=== PATIENT | male | born 1990 | race Caucasian/White ===

== ENCOUNTER 2025-08-01 08:57 | Outpatient (AMB) | payer BC, SELFPAY ==
--- NOTE | 2025-08-01 09:01 | A.OFFPC_ITS ---
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 He is transferring from [facility]. Hx of htn and borderline high cholesterol. 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 Knee has since been healed. Derm: Numerous moles and has needed biopsies in the past. 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 1. Little interest or pleasure in doing things: not at all 2. Feeling down, depressed, or hopeless: not at all 3. Trouble falling or staying asleep, or sleeping too much: not at all 4. Feeling tired or having little energy: not at all 5. Poor appetite or overeating: not at all 6. Feeling bad about yourself - or that you are a failure or have let yourself or your family down: not at all 7. Trouble concentrating on things, such as reading the newspaper or watching television: not at all 8. Moving or speaking so slowly that other people could have noticed. Or the opposite - being so fidgety or restless that you have been moving around a lot more than usual: not at all 9. Thoughts that you would be better off or of hurting yourself in some way: not at all Total score: 0 Depression Screening Interpretation: Negative Depression Screening Done: Yes 25507 - PHQ-9 Billing: Yes Source: Developed by Drs. Sundar Villalpando, Leeanna Paris, Richard Feliciano and colleagues, with an educational isatu from [employer]. Thrive Questionnaire Date Thrive assessed: 07/29/25 I am a: Patient What is your living situation today?: I have a steady place to live Within the past 12 months, did the food you bought not last and you didn't have the money to get more?: Never true Within the past 12 months, did you worry whether your food would run out before you got money to buy more?: Never true Do you have trouble paying for medicines?: No Do you have trouble getting transportation to medical appointments?: No Do you have trouble paying your heating and electricity bill?: No Do you have trouble taking care of your child, family member or friend?: No Do you have trouble with day-to-day activities such as bathing, preparing meals, shopping, managing finances, etc.?: No Are you currently unemployed and looking for a job?: No Are you interested in more education?: No Please select the resources that you would like help with: None Currently or been in a relationship where the following occur: No concerns reported THRIVE Score: 0 AUDIT C Alcohol Use Questionnaire (AUDIT-C) 1. How often do you have a drink containing alcohol?: 2-4 times a month 2. How many drinks containing alcohol do you have on a typical day when you are drinking?: 1 or 2 3. How often do you have six or more drinks on one occasion?: Less than monthly Total Score: 3 CAROL-7 AMB Questionnaire CAROL-7 Date CAROL - 7 assessed: 08/01/25 Feeling nervous, anxious, or on edge: 0 = Not at all Not being able to stop or control worryin = Not at all Worrying too much about different things: 0 = Not at all Trouble relaxin = Not at all Being so restless that it is hard to sit still: 0 = Not at all Becoming easily annoyed or irritable: 0 = Not at all Feeling afraid as if something awful might happen: 0 = Not at all Total CAROL-7 score (0-4 normal; 5-9 mild; 10-14 moderate; 15-21 severe): 0 Source: Developed by Drs. Sundar Villalpando, Leeanna Paris, Richard Feliciano and colleagues, with an educational isatu from [employer]. CAROL-7 Assessment Billing CAROL-7 Assessment Tool: CAROL-7 Assessment 74368 Physical exam (Primary Care) Depression Screening Interpretation: Negative Thrive Assessment: Date of Thrive Assessment Date Thrive assessed 07/29/25 07/29/25 12:19 Currently or been in a relationship where the following occur: No concerns reported Const Orientation/consciousness: patient oriented x3 HENMT Ears: hearing grossly normal bilaterally General nose exam: No nasal polyps present Face and sinus: Yes sinuses nontender Mouth: Normal oral and palatal mucosa present Eyes Pupils: Equal, round and reactive pupils present EOM: EOMs intact bilaterally Neck Neck: Yes full ROM and Yes no lymphadenopathy Thyroid: Thyroid normal Lymphatic: no lymphadenopathy noted Chest Chest palpation & inspection: normal inspection of the chest Resp Auscultation: clear to auscultation bilaterally Cardio Rate: regular rate Rhythm: regular rhythm Heart sounds: S1 normal heart sound present and S2 normal heart sound present Peripheral pulses: Peripheral pulses 2+ throughout GI Other: Soft, nontender Inspection: Yes normal to inspection Palpation (GI): Soft to palpation and Other GI palpation findings present (nontender, no cva tenderness) Auscultation: normoactive bowel sounds Rectal Exam - Male: Yes deferred General: Yes no CVA tenderness Back/Spine/Pelvis Other: Nontender Back: no CVA tenderness Skin General skin exam: no rashes or lesions noted Neuro General: patient oriented x3, gait normal and no focal motor deficits Cranial nerves: Yes Equal, round and reactive pupils present Motor exam (neuro): 5/5 motor strength present throughout Sensory Exam: double simultaneous stimulation for sensation normal Coordination: [id number] test normal and Romberg test negative Extrem General: Yes normal to inspection and Yes full ROM Psych Affect: normal affect Attitude: cooperative Thought process: Normal thought process present Thought content: Normal thought content present Insight: Good insight present (Psych) Judgement: Good judgement present (Psych) Coding Level of Care Code New Pt Prev Care 18-39yr(36202 Diagnoses Routine general medical examination at a health care facility Z00.00 History of essential hypertension Z86.79 Dyslipidemia E78.5 Additional Codes CAROL-7 Assessment Billing - CAROL-7 Assessment Tool: CAROL-7 Assessment 74631 ([id number]) PHQ-9 - 52878 - PHQ-9 Billing: Yes ([id number]) Assessment & Plan Assessment & Plan (1) Routine general medical examination at a health care facility: Code(s): Z00.00 - Encounter for general adult medical examination without abnormal findings Plan: Health maintenance reviewed Labs ordered today (2) History of essential hypertension: Code(s): Z86.79 - Personal history of other diseases of the circulatory system Category: Medical Plan: We will recheck in 6 months He will monitor blood pressures at home (3) Dyslipidemia: Code(s): E78.5 - Hyperlipidemia, unspecified Category: Medical Plan: Lipids ordered Plan Referral to derm Orders: Orders Complete Blood Count Auto Diff Today E78.5 - Hyperlipidemia, unspecified, Z00.00 - Encounter for general adult medical examination without abnormal findings, Z86.79 - Personal history of other diseases of the circulatory system Comprehensive [place]. Panel Fast Today E78.5 - Hyperlipidemia, unspecified, Z00.00 - Encounter for general adult medical examination without abnormal findings, Z86.79 - Personal history of other diseases of the circulatory system Lipid Panel Today E78.5 - Hyperlipidemia, unspecified, Z00.00 - Encounter for general adult medical examination without abnormal findings, Z86.79 - Personal history of other diseases of the circulatory system UA CC w/rflx Micro + Cult Today E78.5 - Hyperlipidemia, unspecified, R30.0 - Dysuria, Z00.00 - Encounter for general adult medical examination without abnormal findings, Z86.79 - Personal history of other diseases of the circulatory system TSH reflex Free T4 Today E78.5 - Hyperlipidemia, unspecified, Z00.00 - Encounter for general adult medical examination without abnormal findings, Z86.79 - Personal history of other diseases of the circulatory system Microalbumin, Random (w Creat) Today E78.5 - Hyperlipidemia, unspecified, Z00.00 - Encounter for general adult medical examination without abnormal findings, Z86.79 - Personal history of other diseases of the circulatory system Referrals Dermatology Referral Z12.83 - Encounter for screening for malignant neoplasm of skin
[2025-08-01 09:06] VITALS: BP 136/64; PULSE 75; RESP 14; TEMP 36.7; O2SAT 97; BMI 33.4
== END 2025-08-01 09:34 | disposition home or self-care (01) ==
LOC: HO.HMCFM 08:58
PROVIDERS: PCP Physician Assistant; Visit Provider Physician Assistant
DX: Z00.00 Encounter for general adult medical examination without abnormal findings (principal); Z86.79 Personal history of other diseases of the circulatory system; E78.5 Hyperlipidemia, unspecified

== ENCOUNTER → 2025-08-01 08:57 | Outpatient (BNVA) | payer BC, SELFPAY | PROVIDERS: PCP Physician Assistant; Visit Provider Physician Assistant | DX: Z00.00 Encounter for general adult medical examination without abnormal findings (principal); E78.5 Hyperlipidemia, unspecified; Z86.79 Personal history of other diseases of the circulatory system | CPT/HCPCS: 96127 ==

== ENCOUNTER 2025-09-10 11:00 | Outpatient (AMB) | payer BC, SELFPAY ==
[2025-09-10 11:08] VITALS: BP 136/84; PULSE 81; RESP 14; TEMP 36.8; O2SAT 96; BMI 35.2
--- NOTE | 2025-09-10 11:08 | A.OFFPC_ITS ---
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 Discomfort, most in center upper lid. No vision changes. No fevers ROS see hpi PHYSICAL EXAM: GENERAL: Alert and oriented x 3. NAD EYES: EOMI. Anicteric. HENT: Moist mucous membranes. No scleral icterus or injection, left upper lid swelling, mild erythema with prominence ctr lid LUNGS: Clear to auscultation bilaterally. CARDIOVASCULAR: Regular rate and rhythm. No murmur. No JVD. ABDOMEN: Soft, non-tender +bs EXTREMITIES: No edema. Non-tender. SKIN: No rashes or lesions. Warm. NEUROLOGIC: No focal neurological deficits. CN II-XII grossly intact PSYCHIATRIC: Cooperative. 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 Current occupational exposures/hazards: No Cognitive needs: No Hearing needs: No Vision needs: No Questionnaire Thrive Questionnaire Date Thrive assessed: 07/29/25 I am a: Patient What is your living situation today?: I have a steady place to live Within the past 12 months, did the food you bought not last and you didn't have the money to get more?: Never true Within the past 12 months, did you worry whether your food would run out before you got money to buy more?: Never true Do you have trouble paying for medicines?: No Do you have trouble getting transportation to medical appointments?: No Do you have trouble paying your heating and electricity bill?: No Do you have trouble taking care of your child, family member or friend?: No Do you have trouble with day-to-day activities such as bathing, preparing meals, shopping, managing finances, etc.?: No Are you currently unemployed and looking for a job?: No Are you interested in more education?: No Please select the resources that you would like help with: None Currently or been in a relationship where the following occur: No concerns reported THRIVE Score: 0 CAROL-7 AMB Questionnaire CAROL-7 Date CAROL - 7 assessed: 08/01/25 Source: Developed by Drs. Sundar Villalpando, Leeanna Paris, Richard Feliciano and colleagues, with an educational isatu from [employer]. Physical exam (Primary Care) Vital Signs: Last Vital Signs Temp 98.2 F 09/10/25 11:08 Pulse 81 09/10/25 11:08 Resp 14 09/10/25 11:08 BP 136/84 09/10/25 11:08 Pulse Ox 96 09/10/25 11:08 Oxygen Delivery Method Room Air 09/10/25 11:08 BMI result Body Mass Index 35.2 Tobacco/Smoking Status: Tobacco use Status Tobacco use date assessed 09/10/25 09/10/25 11:10 Patient Tobacco Use Status Never used Tobacco 09/10/25 11:10 e-Cigarette/Vaping Use Never Used 09/10/25 11:10 Thrive Assessment: Date of Thrive Assessment Date Thrive assessed 07/29/25 09/10/25 11:10 Currently or been in a relationship where the following occur: No concerns reported Coding Level of Care Code Est Pt Level 4 (42039) Diagnoses Hordeolum internum of left upper eyelid H00.024 Hordeolum type: internum Laterality: left Eyelid: upper Assessment & Plan Assessment & Plan (1) Hordeolum: Code(s): H00.019 - Hordeolum externum unspecified eye, unspecified eyelid Category: Medical Qualifiers: Hordeolum type: internum Laterality: left Eyelid: upper Qualified Code(s): H00.024 - Hordeolum internum left upper eyelid Plan Hordeolum Warm compresses, doxycycline Follow up as needed if doesnt resolve or worsens Medications: New doxycycline hyclate 100 mg PO BID 20 tabs 0RF
== END 2025-09-10 11:44 | disposition home or self-care (01) ==
LOC: HO.HMCFM 11:01
PROVIDERS: PCP Physician Assistant; Visit Provider Internal Medicine
DX: H00.024 Hordeolum internum left upper eyelid (principal)